=== PATIENT | female | born 1970 | race Caucasian/White ===

== ENCOUNTER 2018-06-24 18:28 | Emergency (ER) | payer BC ==
--- OUTSIDE RECORDS SUMMARY | 2018-06-24 18:30 | XMS REPORT ---
:1970 Author Organization [facility] Address [address] [place] [address] [address]. [address] [place] [address] Care Team Providers Name Role Phone Unavailable Unavailable Unavailable Problems This patient has no known problems. Allergies, Adverse Reactions, Alerts This patient has no known allergies or adverse reactions. Medications This patient has no known medications. Results Test Description Test Time Test Comments Text Results Atomic Results Result Comments U/S, ENDOVAGINAL 2017-10-22 15:29:00 Reason for FINAL REPORT PATIENT ID: (EV) Exam:->[id number] HISTORY : Endometrial hyperplasia COMPARISON : None Comment: Ultrasound examination of the pelvis was performed transabdominally and transvaginally. The uterus is retroflexed.. The uterus measures 10.3 x 5.4 x 6.1 cm. The endometrial stripe appears thickened measuring 16 mm in maximum thickness. Directly posterior to the endometrium in the uterine fundus there is a 1.1 x 0.6 x 0.8 cm hyperechoic lesion with cystic components. A 1.4 x 1.0 x 0.9 cm hyperechoic area within the posterior uterine body is also identified. The right ovary measures 2.6 x 1.1 x 1.1 cm. The left ovary measures 5.8 x 4.2 x 4.7 ureters and contains a 4.8 x 4.2 x 4.2 cm anechoic cyst There is no evidence of fluid in the cul-de-sac. IMPRESSION :1. Thickened endometrial stripe up to 16 mm consistent with the patient's history of endometrial hyperplasia. Additionally there is a complex hyperechoic structure immediately posterior to the endometrial stripe with cystic change for which carcinoma is not excluded. Further evaluation with pelvic MRI is recommended. 2. 1.4 x 1.0 x 0.9 cm hyperechoic focus within the posterior uterine body is possibly a fibroid. Signed: Bruce Lindo MDReport Verified Date/Time: 10/22/2017 15:29:32 Reading Location: [facility] Radiology Reading Room U/S, PELVIS 2017-10-22 15:29:00 n85 FINAL REPORT HISTORY : Endometrial hyperplasia COMPARISON : None Comment: Ultrasound examination of the pelvis was performed transabdominally and transvaginally. The uterus is retroflexed.. The uterus measures 10.3 x 5.4 x 6.1 cm. The endometrial stripe appears thickened measuring 16 mm in maximum thickness. Directly posterior to the endometrium in the uterine fundus there is a 1.1 x 0.6 x 0.8 cm hyperechoic lesion with cystic components. A 1.4 x 1.0 x 0.9 cm hyperechoic area within the posterior uterine body is also identified. The right ovary measures 2.6 x 1.1 x 1.1 cm. The left ovary measures 5.8 x 4.2 x 4.7 ureters and contains a 4.8 x 4.2 x 4.2 cm anechoic cyst There is no evidence of fluid in the cul-de-sac. IMPRESSION :1. Thickened endometrial stripe up to 16 mm consistent with the patient's history of endometrial hyperplasia. Additionally there is a complex hyperechoic structure immediately posterior to the endometrial stripe with cystic change for which carcinoma is not excluded. Further evaluation with pelvic MRI is recommended. 2. 1.4 x 1.0 x 0.9 cm hyperechoic focus within the posterior uterine body is possibly a fibroid. Signed: Bruce Lindo MDReport Verified Date/Time: 10/22/2017 15:29:32 Reading Location: [facility] Radiology Reading Room
--- OUTSIDE RECORDS SUMMARY | 2018-06-24 18:30 | XMS REPORT | Clinical Summary ---
:1970 Author Organization [facility] Address [address] [place] [address] Care Team Providers Name Role Phone Andreina Cline MD Primary Care Provider Allergies Not on File Medications Not on file Active Problems Not on file Encounters Date Type Specialty Care Team Description 11/05/2017 Orders Only General Internal Medicine 10/22/2017 Hospital Encounter Fl[facility] Osorio Endometrial hyperplasia, unspecified 10/22/2017 Outside Orders Central Scheduling Flaco Osorio Endometrial hyperplasia, unspecified (Primary Dx); Endometrial hyperplasia with atypia after 06/23/2017 Social History Tobacco Use Types Packs/Day Years Used Date Never Assessed Sex Assigned at Date Recorded Not on file Job Start Date Occupation Industry Not on file Not on file Not on file Travel History Travel Start Travel End No recent travel history available. Last Filed Vital Signs Not on file Plan of Treatment Not on file Procedures Procedure Name Priority Date/Time Associated Diagnosis Comments US PELVIS Routine 10/22/2017 2:30 PM Results for this CDT procedure are in the results section. US ENDOVAGINAL EV Routine 10/22/2017 2:30 PM Endometrial Results for this CDT hyperplasia, procedure are in unspecified the results section. after 06/23/2017 Results US Endovaginal EV (10/22/2017 2:30 PM CDT) Narrative Performed At FINAL REPORT [employer] HISTORY : Endometrial hyperplasia COMPARISON : None Comment: Ultrasound examination of the pelvis was performed transabdominally and transvaginally. The uterus is retroflexed..The uterus measures 10.3 x 5.4 x 6.1 cm.The endometrial stripe appears thickened measuring 16 mm in maximum thickness. Directly posterior to the endometrium in the uterine fundus there is a 1.1 x 0.6 x 0.8 cm hyperechoic lesion with cystic components. A 1.4 x 1.0 x 0.9 cm hyperechoic area within the posterior uterine body is also identified. The right ovary measures 2.6 x 1.1 x 1.1 cm.The left ovary measures 5.8 x 4.2 x 4.7 ureters and contains a 4.8 x 4.2 x 4.2 cm anechoic cystThere is no evidence of fluid in the cul-de-sac. IMPRESSION : 1. Thickened endometrial stripe up to 16 mm [...] is possibly a fibroid. Signed: Bruce Lindo MD Report Verified Date/Time:10/22/2017 15:29:32 Reading Location: [facility] Radiology Reading Room Procedure Note Interface, External Ris In - 10/22/2017 3:31 PM CDT FINAL REPORT HISTORY : Endometrial hyperplasia COMPARISON [...] evidence of fluid in the cul-de-sac. IMPRESSION : 1. Thickened endometrial stripe up to 16 mm [...] is possibly a fibroid. Signed: Bruce Lindo MD Report Verified Date/Time: 10/22/2017 15:29:32 Reading Location: [facility] Radiology Reading Room Performing Organization Address City/State/Zipcode Phone Number [employer] US pelvis (10/22/2017 2:30 PM CDT) Narrative Performed At FINAL REPORT [employer] HISTORY : Endometrial hyperplasia COMPARISON : None Comment: Ultrasound examination of the pelvis was performed transabdominally and transvaginally. The uterus is retroflexed..The uterus measures 10.3 x 5.4 x 6.1 cm.The endometrial stripe appears thickened measuring 16 mm in maximum thickness. Directly posterior to the endometrium in the uterine fundus there is a 1.1 x 0.6 x 0.8 cm hyperechoic lesion with cystic components. A 1.4 x 1.0 x 0.9 cm hyperechoic area within the posterior uterine body is also identified. The right ovary measures 2.6 x 1.1 x 1.1 cm.The left ovary measures 5.8 x 4.2 x 4.7 ureters and contains a 4.8 x 4.2 x 4.2 cm anechoic cystThere is no evidence of fluid in the cul-de-sac. IMPRESSION : 1. Thickened endometrial stripe up to 16 mm [...] is possibly a fibroid. Signed: Bruce Lindo MD Report Verified Date/Time:10/22/2017 15:29:32 Reading Location: [facility] Radiology Reading Room Procedure Note Interface, External Ris In - 10/22/2017 3:31 PM CDT FINAL REPORT HISTORY : Endometrial hyperplasia COMPARISON [...] evidence of fluid in the cul-de-sac. IMPRESSION : 1. Thickened endometrial stripe up to 16 mm [...] is possibly a fibroid. Signed: Bruce Lindo MD Report Verified Date/Time: 10/22/2017 15:29:32 Reading Location: [facility] Radiology Reading Room Performing Organization Address City/State/Zipcode Phone Number [employer] RIS after 06/23/2017 Insurance Payer Benefit Plan / Subscriber ID Type Phone Address Group BLUE CROSS/BLUE BCBS PPO POS EPO xxxxxxxxxxxx PPO [phone] [address] [place] [address] ([place]) [place] [address]
[2018-06-24] MEDS ORDERED: ACETAMINOPHEN 500 MG TAB ONE (19:42)
[2018-06-24] MEDS ORDERED: BENZONATATE 100 MG CAP PO ONE (19:42)
--- NOTE | 2018-06-24 20:39 | ER ---
Nurse's Notes [facility] Name: Debra Lyn Age: 48 yrs Sex: Female : 1970 Arrival Date: 06/24/2018 Time: 18:30 Bed 25 Private MD: Miguel Philippe R Diagnosis: Influenza like illness Presentation: 06/24 18:48 Presenting complaint: Patient states: she has been coughing for a about a week but has ca1 taken Tylenol Allergy cold medicine. But today, she said to have been coughing really bad that it hurts really bad in her throat. Her was here last night and was positive with Influenza A. Transition of care: patient was not received from another setting of care. Onset of symptoms was June 24, 2018. Risk Assessment: Do you want to hurt yourself or someone else? Patient reports no desire to harm self or others. Initial Sepsis Screen: Does the patient meet any 2 criteria? No. Patient's initial sepsis screen is negative. Does the patient have a suspected source of infection? Yes: Productive cough/pneumonia. Care prior to arrival: None. 18:48 Method Of Arrival: Ambulatory ca1 18:48 Acuity: TICO 4 ca1 CANARY BREEDER: 18:54 LMP N/A - Hysterectomy ca1 Historical: - Allergies: 18:54 Tylenol-Codeine #3; ca1 - Home Meds: 18:54 None [Active]; ca1 - PMHx: 18:54 None; ca1 - PSHx: 18:54 Balloon Sinuplasty; ca1 18:54 Hysterectomy; ca1 - Immunization history:: Flu vaccine is not up to date. - Social history:: Smoking status: Patient/guardian denies using tobacco. - Ebola Screening: : No symptoms or risks identified at this time. Screenin:38 Abuse screen: Denies threats or abuse. Nutritional screening: No deficits noted. tl3 Tuberculosis screening: No symptoms or risk factors identified. Fall Risk None identified. Assessment: 19:38 General: Appears uncomfortable, well groomed, well developed, well nourished, Behavior tl3 is calm, cooperative, appropriate for age. Pain: Complains of pain in throat. Neuro: Level of Consciousness is awake, alert, obeys commands, Oriented to person, place, time, situation, Appropriate for age. Cardiovascular: Patient's skin is warm and dry. Respiratory: Airway is patent Respiratory effort is even, unlabored, Respiratory pattern is regular, symmetrical, Breath sounds are clear bilaterally. GI: No signs and/or symptoms were reported involving the gastrointestinal system. : No signs and/or symptoms were reported regarding the genitourinary system. EENT: Throat is reddened. Derm: No signs and/or symptoms reported regarding the dermatologic system. Musculoskeletal: No signs and/or symptoms reported regarding the musculoskeletal system. 19:58 Reassessment: No changes from previously documented assessment. Patient and/or family tl3 updated on plan of care and expected duration. Pain level reassessed. Patient is alert, oriented x 3, equal unlabored respirations, skin warm/dry/pink. spoke with pt about cough and if it kept her up at night, it does not. Inquired about possible psychogenic cough mechanism being at play, because she has coughed for so long. 20:32 Reassessment: pt back from radiology. tl3 20:50 Reassessment: Patient appears in no apparent distress at this time. No changes from tl3 previously documented assessment. Patient and/or family updated on plan of care and expected duration. Pain level reassessed. Patient is alert, oriented x 3, equal unlabored respirations, skin warm/dry/pink. Kaleb Vail discussed POC with pt. Vital Signs: 18:54 BP 136 / 77; Pulse 102; Resp 18; Temp 100.8; Pulse Ox 99% on R/A; Weight 71.21 kg; ca1 Height 5 ft. 2 in. (157.48 cm); Pain 10/10; 19:58 BP 114 / 64; Pulse 79; Resp 18; Pulse Ox 100% on R/A; tl3 18:54 Body Mass Index 28.72 (71.21 kg, 157.48 cm) ca1 ED Course: 18:30 Patient arrived in ED. rg4 18:31 Miguel Philippe MD is Private Physician. rg4 18:52 Triage completed. ca1 18:54 Arm band placed on right wrist. ca1 19:04 Kaleb Vail PA is PHCP. cp 19:04 Alli Alfonso MD is Attending Physician. cp 19:26 Sandrine Ceron, ANTONIO is Primary Nurse. tl3 19:38 Patient has correct armband on for positive identification. Bed in low position. Call tl3 light in reach. Side rails up X 1. Lights dimmed. Warm blanket given. 19:38 No provider procedures requiring assistance completed. Patient did not have IV access tl3 during this emergency room visit. 20:25 XRAY Chest Pa And Lat (2 Views) In Process Unspecified. EDMS 20:37 Kaleb Jones MD is Attending Physician. cp 20:38 Miguel Philippe MD is Referral Physician. cp Administered Medications: 19:38 Drug: Tylenol 1000 mg Route: PO; tl3 20:50 Follow up: Response: No adverse reaction tl3 19:38 Drug: Tessalon Perle 200 mg Route: PO; tl3 20:50 Follow up: Response: No adverse reaction tl3 Outcome: 20:38 Discharge ordered by MD. cp 20:50 Discharged to home ambulatory. tl3 20:50 Condition: stable 20:50 Discharge instructions given to patient, Instructed on discharge instructions, follow up and referral plans. Demonstrated understanding of instructions, follow-up care, medications, Prescriptions given X 2. 20:51 Patient left the ED. tl3 Signatures: Dispatcher [employer] EDMS Kaleb Vail PA PA Evelin Jimenez rg4 Sandrine Ceron, RN RN tl3 Stacie Jonas RN RN ca1
--- NOTE | 2018-06-24 20:39 | EDPHYS ---
Physician Documentation [facility] Name: Debra Lyn Age: 48 yrs Sex: Female : 1970 Arrival Date: 06/24/2018 Time: 18:30 Bed 25 Private MD: Miguel Philippe R ED Physician Kaleb Jones HPI: 06/24 19:25 This 48 yrs old Female presents to ER via Ambulatory with complaints of Sore cp Throat, Difficulty Swallowing. 19:25 The patient presents with sore throat. The patient describes throat pain as scratchy. cp Onset: The symptoms/episode began/occurred this morning. Associated signs and symptoms: Pertinent positives: cough, fever, Pertinent negatives headache, vomiting. 19:25 of patient seen yesterday in ED and diagnosed with influenza A. cp [facility]: 18:54 LMP N/A - Hysterectomy ca1 Historical: - Allergies: 18:54 Tylenol-Codeine #3; ca1 - Home Meds: 18:54 None [Active]; ca1 - PMHx: 18:54 None; ca1 - PSHx: 18:54 Balloon Sinuplasty; ca1 18:54 Hysterectomy; ca1 - Immunization history:: Flu vaccine is not up to date. - Social history:: Smoking status: Patient/guardian denies using tobacco. - Ebola Screening: : No symptoms or risks identified at this time. ROS: 19:30 Constitutional: Positive for fever, Negative for poor PO intake. cp 19:30 Eyes: Negative for injury, pain, redness, and discharge. cp 19:30 ENT: Positive for sore throat, Negative for drainage from ear(s), ear pain, difficulty swallowing, difficulty handling secretions. 19:30 Respiratory: Positive for cough, with no reported sputum. 19:30 Abdomen/GI: Negative for abdominal pain, vomiting, diarrhea, constipation. cp 19:30 Skin: Negative for cellulitis, rash. cp 19:30 All other systems are negative. Exam: 19:35 Constitutional: The patient appears in no acute distress, alert, awake, cp non-diaphoretic, non-toxic, well developed, well nourished. 19:35 Head/Face: Normocephalic, atraumatic. cp 19:35 Eyes: Periorbital structures: appear normal, Conjunctiva: normal, no exudate, no injection, Lids and lashes: appear normal, bilaterally. 19:35 ENT: External ear(s): are unremarkable, Ear canal(s): are normal, clear, TM's: dullness, bilaterally, Nose: is normal, Mouth: Lips: moist, Oral mucosa: pink and intact, moist, Posterior pharynx: Airway: no evidence of obstruction, patent, Tonsils: with erythema, no enlargement, swelling, is not appreciated, erythema, that is moderate, exudate, is not appreciated, Voice: is normal. 19:35 Neck: ROM/movement: is normal, is supple, without pain, no range of motions limitations, no meningismus, no nuchal rigidity. 19:35 Chest/axilla: Inspection: normal, Palpation: is normal, no crepitus, no tenderness. 19:35 Cardiovascular: Rate: normal, Rhythm: regular, Heart sounds: murmur, not appreciated. 19:35 Respiratory: the patient does not display signs of respiratory distress, Respirations: cp normal, no use of accessory muscles, no retractions, no splinting, no tachypnea, labored breathing, is not present, accessory muscle usage, is absent, Breath sounds: bronchial sounds, that are mild, are heard diffusely, stridor, is not appreciated, + upper airway congestion. wheezing: is not appreciated. 19:35 Abdomen/GI: Inspection: abdomen appears normal, Palpation: abdomen is soft and cp non-tender, in all quadrants. 19:35 Skin: cellulitis, is not appreciated, no rash present. Vital Signs: 18:54 BP 136 / 77; Pulse 102; Resp 18; Temp 100.8; Pulse Ox 99% on R/A; Weight 71.21 kg; ca1 Height 5 ft. 2 in. (157.48 cm); Pain 10/10; 19:58 BP 114 / 64; Pulse 79; Resp 18; Pulse Ox 100% on R/A; tl3 18:54 Body Mass Index 28.72 (71.21 kg, 157.48 cm) ca1 MDM: 19:04 Patient medically screened. cp 20:35 Data reviewed: vital signs, nurses notes, lab test result(s), radiologic studies, plain cp films. 06/24 19:21 Order name: Strep; Complete Time: 20:10 cp 06/24 20:11 Interpretation: Reviewed. cp 06/24 19:21 Order name: Influenza Screen (a \T\ B); Complete Time: 20:10 cp 06/24 20:11 Interpretation: Reviewed. 06/24 19:55 Order name: Throat Culture EDMN 06/24 20:12 Order name: XRAY Chest Pa And Lat (2 Views) cp Administered Medications: 19:38 Drug: Tylenol 1000 mg Route: PO; tl3 20:50 Follow up: Response: No adverse reaction tl3 19:38 Drug: Tessalon Perle 200 mg Route: PO; tl3 20:50 Follow up: Response: No adverse reaction tl3 Disposition: 06/25 08:51 Co-signature as Attending Physician, Kaleb Jones MD I agree with the assessment and [facility] plan of care. Disposition: 06/24/18 20:38 Discharged to Home. Impression: Influenza like illness. - Condition is Stable. - Discharge Instructions: Influenza, Adult. - Prescriptions for Ibuprofen 800 mg Oral Tablet - take 1 tablet by ORAL route every 8 hours As needed take with food; 30 tablet. Tessalon Perles 100 mg Oral Capsule - take 2 capsule by ORAL route every 8 hours As needed; 30 capsule. Tamiflu 75 mg Oral Capsule - take 1 tablet by ORAL route every 12 hours for 5 days; 10 tablet. - Medication Reconciliation Form, Thank You Letter, Antibiotic Education, Prescription Opioid Use form. - Follow up: Miguel Philippe MD; When: 2 - 3 days; Reason: Recheck today's complaints. - Problem is new. - Symptoms have improved. Signatures: Dispatcher [employer] [facility] Kaleb Jones MD MD cha Page, Corey, PA PA Sandrine Ceron RN RN tl3 Stacie Jonas RN RN ca1 Corrections: (The following items were deleted from the chart) 06/24 20:51 20:38 06/24/2018 20:38 Discharged to Home. Impression: Influenza like illness. tl3 Condition is Stable. Forms are Medication Reconciliation Form, Thank You Letter, Antibiotic Education, Prescription Opioid Use. Follow up: Miguel Philippe; When: 2 - 3 days; Reason: Recheck today's complaints. Problem is new. Symptoms have improved. cp
--- NOTE | 2018-06-24 21:07 | RAD REPORT ---
EXAM DESCRIPTION: RAD - Chest Pa And Lat (2 Views) - 06/24/2018 8:28 pm CLINICAL HISTORY: Persistent cough and congestion, fever COMPARISON: None. TECHNIQUE: PA and lateral views of the chest were obtained. FINDINGS: The lungs are clear of focal infiltrate. No mass, failure or volume overload finding. Per ihilar markings are not outside of normal range. There does appear to be some minimal peribronchial t hickening. Heart size is normal and central vasculature is within normal limits. No pleural effusion or pneumothorax seen. No acute bony finding noted. No aortic abnormality. IMPRESSION: No focal infiltrate to indicate bacterial pneumonia. Minimal bronchitis or viral infiltr ate is possible.
== END 2018-06-24 20:51 | disposition home or self-care (01) ==
LOC: ER 18:28
DX: J11.1 Influenza due to unidentified influenza virus with other respiratory manifestations (principal); Z88.5 Allergy status to narcotic agent
CPT/HCPCS: 71046; 87070; 87081; 87804; 99283

== ENCOUNTER 2018-08-13 17:28 | Observation (INO) | payer BC ==
--- OUTSIDE RECORDS SUMMARY | 2018-08-13 17:31 | XMS REPORT | Clinical Summary ---
:1970 Author Organization [facility] Address [address] [place] [address] Care Team Providers Name Role Phone Andreina Cline MD Primary Care Provider Allergies Not on File Medications Not on file Active Problems Not on file Encounters Date Type Specialty Care Team Description 11/05/2017 Orders Only General Internal Medicine 10/22/2017 Hospital Encounter Flaco Osorio Endometrial hyperplasia, unspecified 10/22/2017 Outside Orders Central Scheduling Flaco Osorio Endometrial hyperplasia, unspecified (Primary Dx); Endometrial hyperplasia with atypia after 08/12/2017 Social History Tobacco Use Types Packs/Day Years [...] are in unspecified the results section. after 08/12/2017 Results US Endovaginal EV (10/22/2017 2:30 PM CDT) Narrative Performed At FINAL REPORT [facility] HISTORY : Endometrial hyperplasia COMPARISON : None [...] MD Report Verified Date/Time:10/22/2017 15:29:32 Reading Location: [facility] Radiology Reading Room Procedure Note Interface, External [...] Report Verified Date/Time: 10/22/2017 15:29:32 Reading Location: [facility] Radiology Reading Room Performing Organization Address City/State/Zipcode Phone Number [facility] US pelvis (10/22/2017 2:30 PM CDT) Narrative Performed At FINAL REPORT [facility] HISTORY : Endometrial hyperplasia COMPARISON : None [...] MD Report Verified Date/Time:10/22/2017 15:29:32 Reading Location: [facility] Radiology Reading Room Procedure Note Interface, External [...] Report Verified Date/Time: 10/22/2017 15:29:32 Reading Location: [facility] Radiology Reading Room Performing Organization Address City/State/Zipcode Phone Number [employer] RIS after 08/12/2017 Insurance Payer Benefit Plan / Subscriber ID Type Phone Address Group [employer]UE [employer]OSS[employer]UE [employer] PPO POS EPO xxxxxxxxxxxx PPO [phone] [address] [place] [address] ([place]) [place] [address]
--- OUTSIDE RECORDS SUMMARY | 2018-08-13 17:31 | XMS REPORT ---
:1970 Author [facility] Address [address] Liriano [address] [place] [id number] Care Team Providers Name Role Phone Unavailable Unavailable Unavailable Problems This patient has no known problems. Allergies, Adverse Reactions, Alerts This patient has no known allergies or adverse reactions. Medications This patient has no known medications. Results Test Description Test Time Test Comments Text Results Atomic Results Result Comments U/S, ENDOVAGINAL 2017-10-22 15:29:00 Reason for FINAL REPORT PATIENT ID: (EV) Exam:->[id number] HISTORY : Endometrial hyperplasia COMPARISON : None [...] [employer] Verified Date/Time: 10/22/2017 15:29:32 Reading Location: [facility] Radiology Reading Room U/S, PELVIS 2017-10-22 15:29:00 [...] [facility] Verified Date/Time: 10/22/2017 15:29:32 Reading Location: [facility] Radiology Reading Room
[2018-08-13] MEDS ORDERED: ACETAMINOPHEN 500 MG TAB PO PRN (18:08)
[2018-08-13 18:36] LABS: Absolute Lymphocytes (CBC) 1.1 K/uL (0.7-4.9); Absolute Monocytes 0.7 K/uL (0.1-1.3); Absolute Neutrophil 8.9 K/uL (1.8-8.0); Basophils % 0.3 % (0-1.3); Eosinophils % 0.2 % (0-4.4); Hematocrit 36.5 % (36.0-45.0); MPV 7.7 fL (7.6-11.3); Monocytes % 6.8 % (3.3-12.3); RBC Red Blood Cell Count 4.06 M/uL (3.86-4.86)
[2018-08-13] MEDS: NACHLORIDE 0.45% 1,000 ML IV SCH ×2 (18:52→21:14)
[2018-08-13 18:55] LABS: Albumin 3.7 g/dL (3.4-5.0); Bilirubin Total 0.8 mg/dL (0.2-1.0); Potassium 3.3 mmol/L (3.5-5.1); Protein, Total 7.9 g/dL (6.4-8.2)
[2018-08-13 19:51] VITALS: BMI 27.1
[2018-08-13 19:56] LABS: Urine Appearance CLOUDY; Urine Bilirubin NEGATIVE (NEG); Urine Blood 3+ (NEG); Urine Color YELLOW; Urine Glucose NEGATIVE (NEG); Urine Protein 1+ (NEG); Urine Specific Gravity <=1.005 (1.005-1.030); Urine Urobilinogen 0.2 mg/dL (0.2-1.0); Urine pH 6.5 (5.0-7.0)
[2018-08-13 20:16] LABS: Urine Microscopic Reflex ORDER UMIC
[2018-08-13 20:32] LABS: Urine Bacteria 20-50 /HPF (<20); Urine Culture Reflex Order NOT NEEDED
[2018-08-13] MEDS: CEFTRIAXONE/SWI 2gm 2 GM/20 ML SYR IVP SCH (21:11)
[2018-08-13] MEDS: CIPROFLOXACIN 400mg IV 400 MG/200 ML BAG IV SCH (21:13)
[2018-08-14] MEDS ORDERED: ACETAMINOPHEN 500 MG TAB PO PRN (00:52)
[2018-08-14] MEDS: CEFTRIAXONE/SWI 2gm 2 GM/20 ML SYR IVP SCH (09:36)
[2018-08-14] MEDS: CIPROFLOXACIN 400mg IV 400 MG/200 ML BAG IV SCH (09:36)
--- NOTE | 2018-08-14 10:28 | RAD REPORT ---
EXAM DESCRIPTION: CT - Stone Protocol - 08/14/2018 10:17 am CLINICAL HISTORY: Abdominal pain, bilateral flank pain, prior cholecystectomy and partial hysterecto my COMPARISON: CT study April 2015 TECHNIQUE: Axial 5 mm thick images were obtained without oral or IV contrast. The [id number] span s the entirety of the system partially obscuring uppermost abdomen and lung bases. All CT scans are performed using dose optimization technique as appropriate and may include automated exposure control or mA/KV adjustment according to patient size. FINDINGS: No obstructing calculi. No hydronephrosis. Renal pelves are similar in size to the compari son. There is a subtle shaggy contour to the ureters. Partially filled urinary bladder shows slightly prominent ace. Patient has punctate calcifications lateral mid left kidney within the parenchyma. These are not new but have increased fractionally in size from 2015. No suspicious renal masses. Isod ense masses and pyelonephritis are not excluded on a stone protocol CT scan. No significant adrenal f inding. Uterus is absent. Right ovary is normal. There is a homogeneous fluid attenuation left ovarian mass 4 .8 x 4.2 cm in size. This is increased slightly from 2015. No calcification, fat, septation or other acute component. There is an additional left ovarian cystic mass 2.3 cm in size. This is new or sligh tly enlarged from comparison. Imaged portions of the liver, spleen and pancreas show no suspicious findings on non-contrast imaging . Cholecystectomy clips are present. No biliary tree dilatation. No dilated bowel loops or focal bowel wall thickening. No appendicitis findings. Patient has a few sm all mesenteric lymph nodes. No hernia, mass or bulky lymphadenopathy noted. No free air, free fluid or pneumatosis. No significant bony abnormality. IMPRESSION: No hydronephrosis or obstructing calculi. Isodense masses and pyelonephritis are not excluded. Correlation is needed with any UA abnormalities that may indicate a pyelonephritis, ureteritis or cystitis. 2 left ovarian cystic masses are present both have enlarged since prior 2015 exam but show gently radha ign characteristics. These can be monitored with pelvic sonography.
[2018-08-14 12:18] VITALS: TEMP 97.9
[2018-08-14 13:12] VITALS: O2SAT 99
[2018-08-14] MEDS: NACHLORIDE 0.45% 1,000 ML IV SCH (14:51)
[2018-08-14 16:19] VITALS: BP 114/66
--- NOTE | 2018-08-14 17:35 | HP ---
Date of Admission: 08/13/2018 Chief Complaint: Back pain, fever, chills, rigors, burning urine. History Of Present Illness: A 48-year-old female was brought to the office with above-mentioned comp laints. She was examined. She had evidence of pyuria, tenderness of the flanks bilaterally, and fev er compatible with the diagnosis of pyelonephritis. In view of this, the patient is admitted for IV antibiotic therapy. The patient does not have previous history of a genitourinary disease. Past Medical History: Positive for hysterectomy and rhinoplasty. Family History: Noncontributory. Personal History: She is allergic to codeine. Home Medicines: None. Review of Systems: No chest pain or shortness of breath. Physical Examination: General: Revealed a 48-year-old female in moderate pain. Vital Signs: Temperature 100.5 in the office. HEENT: No icterus. Neck: Supple. JVD negative. Chest: Clear. Heart: Regular. Abdomen: Tender in both flanks. Bowel sounds present. Extremities: No edema. Laboratory Data: White count 10.7. Chem profile; potassium 3.3, otherwise negative. Alkaline phosp hatase 130, AST 40. Urinalysis, evidence of pyuria and bacteriuria. Assessment: 1.Probable pyelonephritis. 2.Urinary tract infection. 3.Hypokalemia. Plan: IV Rocephin and Cipro. The patient will have a CAT scan to rule out any obstructive pathology . If it is negative, she will be reexamined in the evening again. NICA/JAQUELIN Voice ID: [id number]
== END 2018-08-14 18:13 | disposition home or self-care (01) ==
LOC: 2ND 17:28
PROVIDERS: ADMIT Internal Medicine; ATTEND Internal Medicine
DX: N39.0 Urinary tract infection, site not specified (principal); E87.6 Hypokalemia
CPT/HCPCS: 36415; 74176; 76377; 80053; 81003; 81015; 85025; 87040; 87077; 87086; 87088; 87186; G0378; J0696; J0744

== ENCOUNTER 2019-09-22 14:25 | Emergency (ER) | payer BC ==
--- OUTSIDE RECORDS SUMMARY | 2019-09-22 14:28 | XMS REPORT ---
:1970 Author Organization [facility] t Address [address] [place] [address] Care Team Providers Name Role Phone Unavailable Unavailable Unavailable Problems This patient has no known problems. Allergies, Adverse Reactions, Alerts This patient has no known allergies or adverse reactions. Medications This patient has no known medications. Results Test Description Test Time Test Comments Text Results Atomic Results Result Comments U/S, ENDOVAGINAL 2017-10-22 15:29:00 Reason for FINAL REPORT MELANIE ENT ID: ([id number]) Exam:->[id number] HISTORY : Endometrial hyperplasia COMPARISON : None [...] MDReport Verified Date/Time: 10/22/2017 15:29:32 Reading Location: [facility] Radiology Reading Room U/S, PELVIS 2017-10-22 15:29:00 [...] MDReport Verified Date/Time: 10/22/2017 15:29:32 Reading Location: [facility] Radiology Reading Room
[2019-09-22 15:08] LABS: Urine Blood NEGATIVE (NEG); Urine Glucose NEGATIVE (NEG); Urine Protein NEGATIVE (NEG); Urine pH 5.5 (5.0-7.0)
[2019-09-22 15:10] LABS: Absolute Lymphocytes (CBC) 1.8 K/uL (0.7-4.9); Basophils % 0.7 % (0-1.3); Hematocrit 38.6 % (36.0-45.0); Lymphocytes % 32.8 % (15.3-44.8); MPV 7.8 fL (7.6-11.3); RBC Red Blood Cell Count 4.32 M/uL (3.86-4.86)
[2019-09-22 15:16] LABS: ALT/SGPT 42 U/L (12-78); AST/SGOT 21 U/L (15-37); Alkaline Phosphatase 109 U/L (45-117); BUN Blood Urea Nitrogen 10 mg/dL (7-18); Bicarbonate 27 mmol/L (21-32); Bilirubin Direct < 0.1 mg/dL (0-0.2); Bilirubin Total 0.4 mg/dL (0.2-1.0); Glucose Level 110 mg/dL (74-106); Lipase 131 U/L (73-393); Potassium 3.6 mmol/L (3.5-5.1); Sodium Level 140 mmol/L (136-145)
--- NOTE | 2019-09-22 15:51 | RAD REPORT ---
EXAM DESCRIPTION: CT - Abdomen Pelvis W Contrast - 09/22/2019 3:35 pm CLINICAL HISTORY: Abdominal pain COMPARISON: July 2018 TECHNIQUE: Computed axial tomography of the abdomen pelvis was obtained. 100 cc Isovue-300 was admin istered intravenously. Oral contrast was not requested which limits evaluation of bowel. All CT scans are performed using dose optimization technique as appropriate and may include automated exposure control or mA/KV adjustment according to patient size. FINDINGS: Cholecystectomy. The liver, spleen, pancreas, adrenal and right kidney appear unremarkable. Two punctate calculi withi n the left kidney without hydronephrosis There is no evidence of diverticulitis. Normal appendix Hysterectomy. Small hiatal hernia 6.1 x 5.3 centimeter complex cystic mass within the left adnexa has mildly increased in size. Small p ortion of the periphery is calcified. No significant free fluid IMPRESSION: Tiny nonobstructing left renal calculi. 6.1 x 5.3 centimeter complex cystic mass within left adnexum mildly increased in size. Nonemergent pe lvic ultrasound recommended for further evaluation
--- NOTE | 2019-09-22 16:07 | EDPHYS ---
Physician Documentation [facility] Name: Debra Lyn Age: 49 yrs Sex: Female : 1970 Arrival Date: 09/22/2019 Time: 14:28 Bed 2 Private MD: Miguel Philippe R ED Physician Jam Farah HPI: 09/21 16:04 This 49 yrs old Female presents to ER via Ambulatory with complaints of kb Abdominal Pain. 16:04 The patient presents with abdominal pain right lower quadrant. Onset: The kb symptoms/episode began/occurred 1 week(s) ago. The symptoms do not radiate. Associated signs and symptoms: none. The symptoms are described as constant. Modifying factors: The symptoms are alleviated by nothing, the symptoms are aggravated by pressure. Severity of pain: At its worst the pain was mild moderate in the emergency department the pain is unchanged. The patient has not experienced similar symptoms in the past. The patient has not recently seen a physician. Pt reports pain to right lateral and lower abd that started a week ago. States she was just going to see if it got better on it's own, but she talked to Dr Philippe and was told to come make sure it wasn't her appendix. Denies fever, n/v/d.. Historical: - Allergies: 14:29 Tylenol-Codeine #3; sv - PMHx: 14:33 None; sv - PSHx: 14:29 Balloon Sinuplasty; Hysterectomy; sv - Immunization history:: Flu vaccine is not up to date. - Social history:: Smoking status: Patient denies any tobacco usage or history of. ROS: 16:04 Constitutional: Negative for fever, chills, and weight loss, Cardiovascular: Negative kb for chest pain, palpitations, and edema, Respiratory: Negative for shortness of breath, cough, wheezing, and pleuritic chest pain, Back: Negative for injury and pain, : Negative for injury, bleeding, discharge, and swelling, MS/Extremity: Negative for injury and deformity, Skin: Negative for injury, rash, and discoloration, Neuro: Negative for headache, weakness, numbness, tingling, and seizure. 16:04 Abdomen/GI: Positive for abdominal pain, Negative for nausea, vomiting, and diarrhea. Exam: 16:04 Constitutional: This is a well developed, well nourished patient who is awake, alert, kb and in no acute distress. Head/Face: Normocephalic, atraumatic. Chest/axilla: Normal chest wall appearance and motion. Nontender with no deformity. No lesions are appreciated. Cardiovascular: Regular rate and rhythm with a normal S1 and S2. No gallops, murmurs, or rubs. Normal PMI, no JVD. No pulse deficits. Respiratory: Lungs have equal breath sounds bilaterally, clear to auscultation and percussion. No rales, rhonchi or wheezes noted. No increased work of breathing, no retractions or nasal flaring. Back: No spinal tenderness. No costovertebral tenderness. Full range of motion. Skin: Warm, dry with normal turgor. Normal color with no rashes, no lesions, and no evidence of cellulitis. MS/ Extremity: Pulses equal, no cyanosis. Neurovascular intact. Full, normal range of motion. Neuro: Awake and alert, GCS 15, oriented to person, place, time, and situation. Cranial nerves II-XII grossly intact. Motor strength 5/5 in all extremities. Sensory grossly intact. Cerebellar exam normal. Normal gait. 16:04 Abdomen/GI: Inspection: abdomen appears normal, Bowel sounds: normal, in all quadrants, Palpation: soft, in all quadrants, mild abdominal tenderness, in the right upper quadrant and right lower quadrant. Vital Signs: 14:29 BP 140 / 99; Pulse 70; Resp 16; Temp 98.1; Pulse Ox 100% ; Weight 68.04 kg; Height 5 sv ft. 2 in. (157.48 cm); Pain 0/10; 15:13 BP 134 / 80; Pulse 68; Resp 15; Pulse Ox 100% ; bp 16:15 BP 127 / 75; Pulse 73; Resp 17; Temp 98.2; Pulse Ox 100% ; bp 14:29 Body Mass Index 27.44 (68.04 kg, 157.48 cm) sv MDM: 14:34 Patient medically screened. kb 16:04 Data reviewed: vital signs, nurses notes. Data interpreted: Pulse oximetry: on room air kb is 100 %. Interpretation: normal. Counseling: I had a detailed discussion with the patient and/or guardian regarding: the historical points, exam findings, and any diagnostic results supporting the discharge/admit diagnosis, lab results, radiology results, the need for outpatient follow up, a family practitioner, to return to the emergency department if symptoms worsen or persist or if there are any questions or concerns that arise at home. 09/21 14:34 Order name: Basic Metabolic Panel; Complete Time: 15:20 kb 09/21 14:34 Order name: CBC with Diff; Complete Time: 15:20 kb 09/21 14:34 Order name: Hepatic Function; Complete Time: 15:20 kb 09/21 14:34 Order name: Lipase; Complete Time: 15:20 kb 09/21 14:45 Order name: CT Abd/Pelvis - IV Contrast Only; Complete Time: 16:00 kb 09/21 15:00 Order name: Urine Dipstick--Ancillary (enter results); Complete Time: 15:15 bd 09/21 14:34 Order name: IV Saline Lock; Complete Time: 14:57 kb 09/21 14:34 Order name: Labs collected and sent; Complete Time: 14:57 kb 09/21 14:34 Order name: Urine Dipstick-Ancillary (obtain specimen); Complete Time: 14:57 kb Administered Medications: No medications were administered Disposition: 17:39 Co-signature as Attending Physician, Jam Farah MD I agree with the assessment and kdr plan of care. Disposition: 09/22/19 16:06 Discharged to Home. Impression: Generalized abdominal pain. - Condition is Stable. - Discharge Instructions: Abdominal Pain, Adult, [id number]-[id number]. - Medication Reconciliation Form, Thank You Letter, Antibiotic Education, Prescription Opioid Use form. - Follow up: Emergency Department; When: As needed; Reason: Worsening of condition. Follow up: Miguel Philippe MD; When: 2 - 3 days; Reason: Recheck today's complaints, Continuance of care, Re-evaluation by your physician. Signatures: Dispatcher [employer] EDJennifer Arthur, ABELINO AMBRIZ-Sherrill Hill, Jam Crum RN, MD MD [facility] Cheng Perdomo RN RN bp Corrections: (The following items were deleted from the chart) 16:18 16:06 09/22/2019 16:06 Discharged to Home. Impression: Generalized abdominal pain. bp Condition is Stable. Forms are Medication Reconciliation Form, Thank You Letter, Antibiotic Education, Prescription Opioid Use. Follow up: Emergency Department; When: As needed; Reason: Worsening of condition. Follow up: Miguel Philippe; When: 2 - 3 days; Reason: Recheck today's complaints, Continuance of care, Re-evaluation by your physician. kb
--- NOTE | 2019-09-22 16:07 | ER ---
Nurse's Notes [facility] Name: Debra Lyn Age: 49 yrs Sex: Female : 1970 Arrival Date: 09/22/2019 Time: 14:28 Bed 2 Private MD: Miguel Philippe R Diagnosis: Generalized abdominal pain Presentation: 09/21 14:28 Risk Assessment: Do you want to hurt yourself or someone else? Patient reports no sv desire to harm self or others. 14:28 Method Of Arrival: Ambulatory sv 14:29 Chief complaint: Patient states: RLQ pain x 1 week. Report intermittent back pain as sv well. Coronavirus screen: Proceed with normal triage. Patient denies a cough. Patient denies shortness of breath or difficulty breathing. Patient denies measured and/or subjective temperature greater than 100.4F prior to today's visit. Patient denies travel on a cruise ship or to a country the [facility] currently lists as an affected area. Patient denies contact with known and/or suspected case of COVID-19. Ebola Screen: No symptoms or risks identified at this time. Onset of symptoms was September 15, 2019. 14:29 Acuity: TICO 3 sv 14:29 Initial Sepsis Screen: Does the patient meet any 2 criteria? No. Patient's initial sv sepsis screen is negative. Does the patient have a suspected source of infection? No. Patient's initial sepsis screen is negative. Triage Assessment: 14:33 General: Appears in no apparent distress. comfortable, Behavior is calm, cooperative, sv appropriate for age. Pain: Denies pain. Neuro: Level of Consciousness is awake, alert, obeys commands, Gait is steady. Respiratory: Respiratory effort is even, unlabored. GI: Reports lower abdominal pain. Historical: - Allergies: 14:29 Tylenol-Codeine #3; sv - PMHx: 14:33 None; sv - PSHx: 14:29 Balloon Sinuplasty; Hysterectomy; sv - Immunization history:: Flu vaccine is not up to date. - Social history:: Smoking status: Patient denies any tobacco usage or history of. Screenin:59 Abuse screen: Denies threats or abuse. Denies injuries from another. Nutritional bp screening: No deficits noted. Tuberculosis screening: No symptoms or risk factors identified. Fall Risk None identified. Assessment: 14:35 General: SEE TRIAGE NOTE. bp 15:14 Reassessment: CT PENDING. ALL CURRENT ORDERS COMPLETED. bp 16:16 Reassessment: PT D/C HOME AMBULATORY, DX WITH GEN ABDOMINAL PAIN. bp Vital Signs: 14:29 BP 140 / 99; Pulse 70; Resp 16; Temp 98.1; Pulse Ox 100% ; Weight 68.04 kg; Height 5 sv ft. 2 in. (157.48 cm); Pain 0/10; 15:13 BP 134 / 80; Pulse 68; Resp 15; Pulse Ox 100% ; bp 16:15 BP 127 / 75; Pulse 73; Resp 17; Temp 98.2; Pulse Ox 100% ; bp 14:29 Body Mass Index 27.44 (68.04 kg, 157.48 cm) sv ED Course: 14:28 Patient arrived in ED. as 14:28 Miguel Philippe MD is Private Physician. as 14:28 Arm band placed on. sv 14:30 Triage completed. sv 14:34 Jennifer Kun[facility]-C [facility]. kb 14:34 Jam Farah MD is Attending Physician. kb 14:39 Cheng Perdomo, ANTONIO is Primary Nurse. bp 14:45 Urine collected: clean catch specimen, clear. dh3 14:49 Initial lab(s) drawn, by me, sent to lab. Inserted saline lock: 20 gauge in left dh3 antecubital area, using aseptic technique. Blood collected. 14:59 Patient has correct armband on for positive identification. Bed in low position. Call bp light in reach. Side rails up X2. 15:35 CT Abd/Pelvis - IV Contrast Only In Process Unspecified. EDMS 15:35 CT completed. Patient tolerated procedure well. Note: Pt walked to CT accompanied by valentine Campos. Patient moved back from CT. 15:50 No provider procedures requiring assistance completed. ls4 16:06 Miguel Philippe MD is Referral Physician. kb 16:16 IV discontinued, intact, bleeding controlled, No redness/swelling at site. Pressure bp dressing applied. Administered Medications: No medications were administered Outcome: 16:06 Discharge ordered by . kb 16:16 Discharged to home ambulatory. bp 16:16 Condition: stable 16:16 Discharge instructions given to patient, Instructed on discharge instructions, follow up and referral plans. Demonstrated understanding of instructions, follow-up care. 16:18 Patient left the ED. bp Signatures: Dispatcher [employer] EDMS Jennifer Kunz, SCREEN PRINTING LOADER UNLOADER-Viry SCREEN PRINTING LOADER UNLOADER-Sherrill Hill, ANTONIO RN Haley Rivero Nathan nj Herrera, Deanna [facility] Cheng Perdomo RN RN bp Stewart, Lisa, RN RN ls4 Corrections: (The following items were deleted from the chart) 14:32 14:29 68.04 kg; Height 5 ft. 2 in.; BMI: 27.4; [facility]
== END 2019-09-22 16:18 | disposition home or self-care (01) ==
LOC: ER 14:25
DX: R10.84 Generalized abdominal pain (principal); Z88.5 Allergy status to narcotic agent
CPT/HCPCS: 85025; 80048; 36415; 80076; 81003; 83690; 74177; 99284; Q9967

== ENCOUNTER 2022-05-07 07:14 | Day surgery (SDC) | payer BC ==
[2022-05-02 13:19] LABS: Absolute Lymphocytes (CBC) 1.7 K/uL (0.7-4.9); Hematocrit 40.1 % (36.0-45.0); Lymphocytes % 25.9 % (15.3-44.8); MCV 88.7 fL (80-100); MPV 6.9 fL (7.6-11.3); RBC Red Blood Cell Count 4.51 M/uL (3.86-4.86)
[2022-05-02 13:23] LABS: Specific Gravity < 1.005 (1.005-1.030); Urine Bilirubin NEGATIVE (Negative); Urine Blood Negative (Negative); Urine Clarity Clear (Clear); Urine Color Colorless (Yellow); Urine Glucose NEGATIVE (Negative); Urine Protein NEGATIVE (Negative); Urine Urobilinogen Normal (Normal); Urine pH 5.5 (5.0-7.0)
[2022-05-02 13:35] LABS: SARS-CoV-2 Antigen Rapid Res Negative (Negative)
[2022-05-07] MEDS ORDERED: Ringers Lactate 1,000 ML IV ONE ×2 (07:32→14:01)
[2022-05-07] MEDS ORDERED: SCOPOLAMINE HYDROBROMIDE PATCH TD ONE (07:32)
[2022-05-07] MEDS ORDERED: CELECOXIB 100 MG CAPSULE ONE (10:31)
[2022-05-07] MEDS ORDERED: ACETAMINOPHEN 500 MG TAB ONE (10:32)
[2022-05-07] MEDS: BUPIVACAINE 0.25% PF 30 ML VIAL ONE ×2 (10:49→12:00)
[2022-05-07] MEDS ORDERED: FENTANYL CITR 100 MCG/2 ML ONE (11:14)
[2022-05-07] MEDS ORDERED: MIDAZOLAM HCL 2 MG/2 ML INJ ONE (11:14)
[2022-05-07] MEDS ORDERED: propofoL 200 MG/20 ML VIAL IV ONE (11:14)
[2022-05-07] MEDS ORDERED: ONDANSETRON 4 MG/2 ML VIAL ONE (11:15)
[2022-05-07] MEDS ORDERED: LIDOCAINE 2% MPF 5 ML VIAL ONE (11:15)
[2022-05-07] MEDS ORDERED: ROCURONIUM 50 MG/5 ML VIAL IV ONE (11:15)
[2022-05-07] MEDS ORDERED: CEFAZOLIN SODIUM 2 GM/VIAL ONE (11:23)
[2022-05-07] MEDS ORDERED: dexAMETHasone 4 MG/ML VIAL ONE (11:40)
[2022-05-07] MEDS ORDERED: NA CHLORIDE 0.9% 1,000 ML ONE (14:09)
[2022-05-07] MEDS ORDERED: KETOROLAC 30 MG/ML INJ ONE (14:17)
[2022-05-07] MEDS ORDERED: Mastisol Adhesive Liq ONE (14:29)
[2022-05-07] MEDS ORDERED: MEPERIDINE HCL 25 MG/ML SYR ONE (15:44)
[2022-05-07] MEDS: HYDROMORPHONE HCL 1 MG/ML INJ ONE ×2 (15:46→15:51)
[2022-05-07 17:02] VITALS: BP 129/76; TEMP 97.3; O2SAT 99
[2022-05-07] MEDS ORDERED: HYDROCODONE/APAP 5/325 MG TAB ONE (17:55)
--- NOTE | 2022-05-08 13:17 | OP ---
Surgeon: PAULINA SALDIVAR This is an intraoperative consultation and operative excursion at the request of Dr. Angelita Medina . Reason For Consultation: Ovarian cystic structure adherent to the left paracolic space overlying the ureter. Dr. Medina requested my assistance intraoperatively because while dissecting a cystic ovarian lesio n in a patient who had a prior hysterectomy from the left paracolic space, she encountered dense adhe sions from the ovarian tissues in the region overlying the ureter. Prior to my entry into the operat ing room, she had placed a 5-Kittitian ureteral catheter as a left ureteral stent, and she desired by as sistance with the laparoscopic ureterolysis to be performed. Principal Procedure: Laparoscopic left ureterolysis. Procedure In Detail: The patient was already positioned in the Trendelenburg position with laparosco pic ports preplaced by Dr. Medina. I thus utilized those preplaced ports to assist Dr. Medina to divide and resect the tissues overlying the left ureter where the ovarian cystic structure was adher ent. I thus elevated the left ovary, and using the LigaSure, we dissected the attachments overlying the ureter without even close approximation to the adventitia of the ureter. Once all of the adhesio ns were released, the ovarian structure was completely from the ureter and was thus able to be divided from the remaining infundibulopelvic ligaments and other filmy attachments medially, rele asing the structure to be delivered for pathologic analysis. In the end, the ureter was completely i ntact and as I indicated above, there was not even close approximation to the adventitia of the urete r. As a result, I turned over the remainder of the case to Dr. Medina to complete per routine. Complications: None. Discharge Disposition: She will be in the postoperative pathway as dictated by Dr. Medina. WR/MODL Voice ID: [id number] Report ID: [id number]
== END 2022-05-07 18:59 | disposition home or self-care (01) ==
LOC: OR 07:14
PROVIDERS: ATTEND Obstetrics & Gynecology
PROC: 0DNN4ZZ Release Sigmoid Colon, Percutaneous Endoscopic Approach (ICD-10-PCS; 2022-05-07)
PROC: 0TN74ZZ Release Left Ureter, Percutaneous Endoscopic Approach (ICD-10-PCS; 2022-05-07)
PROC: 0UT24ZZ Resection of Bilateral Ovaries, Percutaneous Endoscopic Approach (ICD-10-PCS; principal; 2022-05-07 08:30)
DX: N83.202 Unspecified ovarian cyst, left side (principal); R10.2 Pelvic and perineal pain; K66.0 Peritoneal adhesions (postprocedural) (postinfection); Z85.42 Personal history of malignant neoplasm of other parts of uterus
CPT/HCPCS: 85025; 36415; 86900; 88108; 86850; 86901; 88305 ×2; 81003; 87811; 58661; 44180; 50949; J2704; J1100; J2001; J2250; J3010; J2175; J1170; J7120 ×2; J7030; J2405